=== PATIENT | female | born 1985 | race Caucasian/White ===

== ENCOUNTER → 2021-01-22 | Outpatient (CLI) | payer BC ==
--- NOTE | 2021-01-22 17:38 | Diagnostic Imaging Report ---
INDICATION: Right foot pain. EXAMINATION: AP, oblique, and lateral views of the right foot are obtained. FINDINGS: No fracture or acute bony abnormality is seen. There is plantar calcaneal spurring. Joint spaces are unremarkable. IMPRESSION: No acute abnormality in the right foot. Some plantar calcaneal spurring is noted. Dictated by: Dictated on workstation # [id number]
== END ==
LOC: RAD FS 16:17
PROVIDERS: ATTEND Pediatrics
DX: M79.671 Pain in right foot (principal); M77.31 Calcaneal spur, right foot
CPT/HCPCS: 73630